=== PATIENT | male | born 2000 | race Caucasian/White ===

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

== ENCOUNTER 2022-06-26 20:55 | Emergency (ER) | payer OTHER, SELFPAY ==
--- NOTE | ~2022-06-26 | XR_ITS ---
EXAMINATION: XR SHOULDER, LEFT CLINICAL INFORMATION: Pain after a fall COMPARISON: None TECHNIQUE: Four views of the left shoulder. FINDINGS: The bones and soft tissues are normal. No fracture. Glenohumeral and acromioclavicular alignment is anatomic with normal joint space. No abnormal soft tissue calcifications. XR/XR shoulder LT min 2V IMPRESSION: Normal left shoulder.
--- NOTE | ~2022-06-26 | XR_ITS ---
EXAMINATION: XR CHEST CLINICAL INFORMATION: Chest trauma COMPARISON: None TECHNIQUE: Frontal view of the chest was obtained. FINDINGS: The lungs are well expanded. There is no focal consolidation, edema, or effusion. No pneumothorax. The cardiomediastinal silhouette is within normal limits. No acute osseous abnormality. XR/XR chest 1V IMPRESSION: Clear lungs. No displaced fractures are seen.
[2022-06-26 21:11] VITALS: BP 125/69; PULSE 75; RESP 18; O2SAT 96; BMI 27.3
[2022-06-26 22:27] VITALS: O2SAT 93
--- OUTSIDE RECORDS SUMMARY | 2022-06-26 22:27 | XMS_ITS | Continuity of Care Document ---
:2000 Author Organization [facility] Address [address] [place] [address]- Care Team Providers Name Role Phone Not on Staff, PCP Primary Care Physician Unavailable Encounter [facility] Date(s): 04/18/21 - 04/20/[address] [id number] Discharge Disposition: A-D/C Home Attending Physician: Nicole Harkins MD Admitting Physician: Regina Moreno MD Referring Physician: Not on Staff, Referring MD Allergies, Adverse Reactions, Alerts Substance Reaction Severity Status Kiwi Active Immunizations Given and Recorded Vaccine Date Status Refusal Reason SARS-CoV-2 (COVID-19) mRNA-1273 vaccine 10/15/20 Recorded SARS-CoV-2 (COVID-19) mRNA-1273 vaccine 09/17/20 Recorded Medications acetaminophen 160 mg/5 mL oral suspension 20 mL = 640 mg, By Mouth, Every 6 hours, PRN Pain , Mild, # 480 mL, 0 Refills, Maintenance, 04/20/2114:52:00 EST, Suspension, [facility], Partial fill upon patient request if the prescription is for a schedule II opioid drug., 172, cm,... Start Date: 04/20/21 Status: Orderedibuprofen 100 mg/5 mL oral suspension 30 mL = 600 mg, By Mouth, 3 times a day, PRN Pain , Mild, # 240 mL, 0 Refills, Maintenance, 04/20/2114:52:00 EST, Suspension, [facility], Partial fill upon patient request if the prescription is for a schedule II opioid drug., 172, cm,... Start Date: 04/20/21 Status: OrderedIbuprofen Liquid 600 mg, Suspension, By Mouth, 3 times a day, PRN for Pain , Mild, Routine, 04/19/21 14:16:00 EST Start Date: 04/19/21 Stop Date: 05/03/21 Status: OrderedProAir HFA 90 mcg/inh inhalation aerosol with adapter 2, puffs, Inhalation, Every 4 hours, PRN, # 8.5 Gm, Refills 0, Maintenance, 04/18/21 6:35:00 EST, Aerosol Start Date: 04/18/21 Status: Ordered Results Radiology Reports Exam Date Time Procedure Performing Provider Status 04/18/21 4:24 AM Chest 2 Views Frontal and Lat Rudy , Alliso n; Auth (Verified) Notes:(Chest 2 Views Frontal and Lat) Reason For Exam: Shortness of Breath, Fever;Other:RESULT: Chest 2 Views Frontal and Lat Chest 2 Views Frontal and Lat Reason: Other:; Shortness of Breath, Fever; Clinical Question(s): Pneumonia COMPARISON: None FINDINGS: LINES AND TUBES: None. LUNGS AND PLEURA: The lungs are clear. No pleural effusion. No pneumothorax. HEART, MEDIASTINUM AND GLORIA: Normal. BONES AND SOFT TISSUES: Normal. IMPRESSION: Normal. WSN: [id number] Ordering Physician: Teo Resendiz Dictated By: Isabel Wilkinson MD Dictated Date/Time: 04/18/21 5:01 am Reviewed By: Isabel Wilkinson MD Signed By: Isabel Wilkinson MD Signed Date/Time: 04/18/21 5:01 am Transcribed By: BEATRIZ Transcribed Date/Time: 04/18/21 5:01 am Vital Signs Most recent to oldest 1 2 3 [Reference Range]: Height 172 cm 172 cm 172 cm (04/20/21 12:13 PM) (04/20/21 8:07 AM) (04/19/21 9:07 PM) Weight 82.2 kg (04/18/21 6:22 AM) Oxygen Saturation [94-100 97 % 96 % 96 % %] (04/20/21 4:14 PM) (04/20/21 12:13 PM) (04/20/21 8:07 AM) Pulse Rate [55-90 bpm] 70 bpm 68 bpm 153 bpm (04/20/21 4:14 PM) (04/20/21 12:13 PM) *H* (04/20/21 8:07 A M) Body Mass Index 27.79 [18.5-24.99] *H* (04/18/21 6:22 AM) Blood Pressure 122/59 mm Hg 131/78 mm Hg 123/65 mm Hg [71-110/30-71 mm Hg] *H* *H* *H* (04/20/21 4:14 PM) (04/20/21 12:13 PM) (04/20/21 8:07 AM) Respiratory Rate [16-30 16 br/min 20 br/min 22 br/mi n br/min] (04/20/21 4:14 PM) (04/20/21 1:41 PM) (04/20/21 12:13 PM) Temperature [96.8-100.4 97.7 DegF 97.9 DegF 97.5 Deg F DegF] (04/20/21 4:14 PM) (04/20/21 12:13 PM) (04/20/21 8:07 AM) Mode of Delivery (Oxygen) Room air Room air Room a ir (04/20/21 4:14 PM) (04/20/21 12:13 PM) (04/20/21 8:07 AM) Blood pressure sites Arm, right Arm, right Arm, right (04/20/21 4:14 PM) (04/20/21 12:13 PM) (04/20/21 8:07 AM) Temperature Route Oral Oral Oral (04/20/21 4:14 PM) (04/20/21 12:13 PM) (04/20/21 8:07 AM) Dry Weight 82.2 kg (04/18/21 6:22 AM)
--- NOTE | 2022-06-26 23:31 | ED.FALL ---
HPI - Fall General Chief Complaint: Fall Stated Complaint: fell left shoulder and head pain Time Seen by Provider: 06/26/22 22:42 Source: patient Mode of arrival: ambulatory History of Present Illness HPI Narrative: This is a 21-year-old male with no significant medical history presenting to the emergency department with acute traumatic left-sided shoulder pain that started at approximately 19:15, patient tells me he was snowboarding, patient fell, landing on his left shoulder and striking his head on the snow, patient tells me he did not lose consciousness. He tells me he was experiencing a diffuse headache which felt like his typical, with slight blurred vision and for a moment he felt dizzy however all this has subsided. He is not on blood thinners. He tells me he just feels tired at this time. Reports continuous left-sided shoulder pain worse with movement better at rest. He tells me he was brought down by snow patrol on a sled knee was placed in a sling, he tells me sling provide symptomatic relief. Patient denies numbness, tingling, vision changes, dizziness, weakness, nausea, vomiting, chest pain, shortness of breath, headache at this time. GCS of 15 NIH stroke scale 0 Related Data Previous Rx's Medication Instructions Recorded ketorolac 10 mg tablet 10 mg PO TID PRN pain 5 days #15 06/26/22 tabs Allergies Allergy/AdvReac Type Severity Reaction Status Date / Time kiwi Allergy Anaphylaxis Verified 06/26/22 21:11 Review of Systems Review of Systems: Constitutional : No Weight loss, No Fever, No Chills, No Fatigue, No Malaise ENT/Mouth : No sore throat, No Rhinorrhea Eyes: No Eye Pain, No Swelling, No Redness Cardiovascular : No Chest Pain, No SOB, No Dyspnea on Exertion, No Orthopnea, No Edema, No Palpitations Respiratory : No Cough, No Sputum, No Wheezing Gastrointestinal : No Nausea, No Vomiting, No Diarrhea, No Constipation, No abdominal Pain, No Hematochezia, No Melena Genitourinary : No Dysuria, No Urinary Frequency, No Hematuria, Musculoskeletal : + joint pain, No Myalgias, + Joint Swelling Skin : No Skin Lesions, No rash Neuro : No Weakness, No Numbness, No Dizziness, No Headache Psych : No Anxiety/Panic, No Depression All other systems reviewed and are negative Yes all other systems are reviewed and are negative [facility] Past Medical History Medical History Asthma Social History Social History Alcohol intake: never Smoked in Last 30 Days: No Use of substances other than those prescribed or required for medical reasons: No Advance Directives: No Advance Directives Information Provided: No Physical Exam Vital Signs: Vital Signs: Last Vital Signs Pulse 75 06/26/22 21:11 Resp 18 06/26/22 21:11 BP 125/69 06/26/22 21:11 Pulse Ox 93 06/26/22 22:27 O2 Del Method 06/26/22 22:27 BMI result Body Mass Index 27.3 Vital signs stable Appearance: Alert.? Oriented X3.? No acute distress.? Head: Normocephalic, atraumatic, no step-offs or deformities Eyes: Pupils equal, round and reactive to light.? Extraocular movements intact and pain-free. ENT: Pharynx normal.? Neck: Normal inspection.? Neck supple.? CVS: Normal heart rate and rhythm.? Pulses normal.? Respiratory: No respiratory distress.? Breath sounds normal.? Abdomen: Soft and nontender.? Skin: Skin warm and dry.? Normal skin color.? Normal skin turgor.? Extremities: No lower extremity edema.? No calf ttp. 5/5 strength to bilateral upper and lower extremities. Bilateral shoulders however slight discomfort with range of motion of left shoulder. No step-offs or deformities. 2+ radial pulses equal bilateral. Normal capillary refill less than 2 seconds. No wrist drop. Back: No midline tenderness, no C-spine tenderness, full range of motion, no CVA tenderness bilaterally Neuro: Oriented X 3.? No motor deficit.? No sensory deficit. CN 2-12 intact normal [id number], [id number], steady tandem gait with normal coordination. Course Reevaluation(s) Reevaluation #1: X-ray of left shoulder unremarkable. Concerns for sprain/strain. Patient's neuro remains nonfocal, cerebellar still intact. Patient ambulating with steady gait normal coordination. Will have him follow-up with the orthopedic team. Educated on post concussive syndrome, outlined worrisome signs and symptoms on discharge. Educated patient on diagnosis and treatment plan, answered all question, patient verbalizes understanding. At this time patient will be discharged home, advised to return with new or worsening symptoms. Educated on worrisome signs and symptoms and when to return. At this time I feel comfortable discharge home. Time: 23:35 Medical Decision Making Medical Decision Making [facility] Narrative: [id number] 21-year-old male presents with snowboard related injury complaining of left shoulder pain, earlier today was experiencing headache, slight blurred vision and dizziness which have all resolved. No loss of consciousness. Patient not on blood thinners. On arrival GCS of 15, NIH stroke scale 0. Physical examination with full range of motion to bilateral shoulders however slight discomfort with range of motion of left shoulder. No step-offs or deformities. 2+ radial pulses equal bilateral. Normal capillary refill less than 2 seconds. No wrist drop. Neuro exam is nonfocal. Cerebellar intact. Based off [place] head CT rule CT of head is unnecessary. There was no evident injuries on chest, abdomen or pelvis therefore no need for imaging at this time. Likely concussion without loss of consciousness. Unlikely intracranial hemorrhage, stroke, posterior stroke. Left shoulder pain likely strain/sprain. Unlikely fracture, dislocation, acute ligament or tendon tear, unlikely injury to brachial plexus. Plan at this time is x-ray. No need for head CT. Differential Diagnosis Differential Diagnoses: The differential diagnosis associated with the presentation includes Likely concussion without loss of consciousness. Unlikely intracranial hemorrhage, stroke, posterior stroke. Left shoulder pain likely strain/sprain. Unlikely fracture, dislocation, acute ligament or tendon tear, unlikely injury to brachial plexus. Admission/Observation Consideration of admission/observation: Escalation of care including admission/observation considered Independent Interpretation I performed an independent interpretation of an: Plain X-Ray (Unremarkable) Radiology Impression Discussion of test interpretation with radiology: I have reviewed the radiologist's reading. Tests considered The following testing was considered but not selected: Considered head CT however [place] head CT score negative, patient's neuro nonfocal, cerebellar intact. Prescription Management I considered prescription management with: Pain Medication (Toradol) Core Measures AMI core measures followed: Yes Measure exclusions: not indicated Critical Care Time Critical Care Time Critical Care Time: No Discharge Plan Discharge Clinical Impression: Acute pain of left shoulder, Concussion without loss of consciousness Patient Disposition: Home, Self-Care Additional Instructions: Take your medications as prescribed. If you were prescribed antibiotics today, it is important that you take your medication to their entirety, do not skip any doses, do not finish them early. Follow-up with your primary care provider this week. Return to the emergency department with new or worsening symptoms. Such as fevers, chills, chest pain, shortness of breath, nausea, vomiting, dizziness, headache, vision changes, lethargy, weakness, vision changes, dizziness Please rest her brain, limit screen time, limit time spent in bright light. Please do not return to sports until medically cleared by medical professional. Your chest x-ray was unremarkable and did not show any fractures or dislocations, please follow-up with orthopedics as he may require an MRI for further evaluation of this injury. In case of emergency call 911 Toradol has been sent to your pharmacy, you tolerated this well in the department. Please take this as prescribed do not take this with ibuprofen, or other NSAIDs, do not mix this with alcohol. Side effects of this medication including increased risk for bleeding and possible kidney injury. Prescriptions: New ketorolac 10 mg tablet 10 mg PO TID PRN (Reason: pain) 5 Days Qty: 15 0RF Rx Instructions: Tolerated IM in the department Referrals: [facility] [Provider Group] - 1 week Physician,Unknown J [Primary Care Provider] - 2 days Stand Alone Forms: Work/School Release
[2022-06-26] MEDS: Ketorolac Tromethamine 30 MG/ML VIAL IM (23:48)
== END 2022-06-27 00:18 | disposition home or self-care (01) ==
PROVIDERS: Emergency Provider Internal Medicine
DX: G89.11 Acute pain due to trauma (principal); M25.512 Pain in left shoulder; S06.0X0A Concussion without loss of consciousness, initial encounter; W17.81XA Fall down embankment (hill), initial encounter; Y93.23 Activity, snow (alpine) (downhill) skiing, snowboarding, sledding, tobogganing and snow tubing; Y92.828 Other wilderness area as the place of occurrence of the external cause; Y99.9 Unspecified external cause status
CPT/HCPCS: 71045; 73030; 96372; 99284; 99285; J1885